=== PATIENT | female | born 1970 | race Caucasian/White ===

== ENCOUNTER 2016-11-29 08:48 | Emergency (ER) | payer BC ==
[2016-11-29] MEDS ORDERED: ASPIRIN 81 MG TABLET, CHEWABLE PO ONE (09:11)
[2016-11-29] MEDS ORDERED: ONDANSETRON 4 MG TAB.RAPDIS PO ONE (09:13)
[2016-11-29 09:40] LABS: ABSOLUTE LYMPHOCYTES (AUTO) 1.2 10^3/uL (0.5-4.7); ABSOLUTE MONOCYTES (AUTO) 0.9 10^3/uL (0.1-1.4); ABSOLUTE NEUT (AUTO) 11.3 10^3/uL (1.7-8.2); BASOPHILS % (AUTO) 0.3 % (0-2); HEMATOCRIT 37.3 % (36.0-47.0); HEMOGLOBIN 11.6 g/dL (12.0-15.5); HGB HCT DIFFERENCE -2.5; LYMPHOCYTES % (AUTO) 8.8 % (13-45); MEAN CORPUSCULAR HGB CONC 31.1 g/dL (32.0-36.0); MONOCYTES % (AUTO) 6.6 % (3-13); RED BLOOD COUNT 6.09 10^6/uL (3.72-5.28); RED CELL DISTRIBUTION WIDTH 15.1 % (11.5-14.0); SEGMENTED NEUTROPHILS % (AUTO) 84.3 % (42-78); WHITE BLOOD COUNT 13.4 10^3/uL (4.0-10.5)
[2016-11-29 09:41] LABS: MEAN CORPUSCULAR VOLUME 61 fl (80-97)
[2016-11-29 09:58] LABS: ANISOCYTOSIS SLIGHT; HYPOCHROMASIA SLIGHT; MICROCYTOSIS 3+; OVALOCYTES 1+; POIKILOCYTOSIS 1+
[2016-11-29 10:02] LABS: ALANINE AMINOTRANSFERASE 32 U/L (9-52); ALBUMIN 4.7 g/dL (3.5-5.0); ALKALINE PHOSPHATASE 53 U/L (38-126); ANION GAP 11 (5-19); ASPARTATE AMINO TRANSFERASE 17 U/L (14-36); BILIRUBIN,TOTAL 0.9 mg/dL (0.2-1.3); BLOOD UREA NITROGEN 15 mg/dL (7-20); CALCIUM 9.7 mg/dL (8.4-10.2); CARBON DIOXIDE 28 mmol/L (22-30); CHLORIDE 105 mmol/L (98-107); CREATINE KINASE 37 U/L (30-135); GLUCOSE 137 mg/dL (75-110); POTASSIUM 3.5 mmol/L (3.6-5.0); SODIUM 143.8 mmol/L (137-145); TOTAL PROTEIN 7.8 g/dL (6.3-8.2)
[2016-11-29 10:15] LABS: CREATINE KINASE MB < 0.22 ng/mL (<4.55); TROPONIN I < 0.012 ng/mL
--- NOTE | 2016-11-29 11:17 | EKG REPORT ---
SEVERITY:- NORMAL ECG - SINUS RHYTHM : Confirmed by: Analia Connors 29-Nov-2016 11:16:50
[2016-11-29] MEDS ORDERED: NORMAL SALINE 1000 ML 1,000 ML IV PRN (12:40)
[2016-11-29] MEDS ORDERED: METOCLOPRAMIDE HCL INJ/PF 10 MG/2 ML SDV IV ONE (12:41)
[2016-11-29] MEDS ORDERED: DIPHENHYDRAMINE HCL 50 MG/ML VIAL IV ONE (12:41)
[2016-11-29 14:05] LABS: APPEARANCE,URINE TURBID; BILIRUBIN,URINE NEGATIVE (NEGATIVE); CALCIUM OXALATE CRYSTALS,URINE FEW /HPF; GLUCOSE, URINE 50 mg/dL (NEGATIVE); KETONES,URINE 20 mg/dL (NEGATIVE); LEUKOCYTE ESTERASE,URINE NEGATIVE (NEGATIVE); NITRITE,URINE NEGATIVE (NEGATIVE); PROTEIN,URINE 100 mg/dL (NEGATIVE); URIC ACID CRYSTALS,URINE MANY /HPF; URINE SPECIFIC GRAVITY 1.035; UROBILINOGEN,URINE NEGATIVE mg/dL (<2.0)
[2016-11-29] MEDS ORDERED: MAG HYDROX/AL HYDROX/SIMETH SUSP 30 ML UDCUP PO ONE (16:19)
[2016-11-29] MEDS ORDERED: LIDOCAINE 2% VISCOUS SOLN 20 ML UDCUP PO ONE (16:19)
--- NOTE | 2016-11-29 17:40 | ER Document Report ---
ED General - General Chief Complaint: Chest Pain Stated Complaint: PALPITATIONS Mode of Arrival: Ambulatory Information source: Patient Notes: 46 y/o F presents to ED c/o generalized body aches and weakness, chills, n/v, and intermittent upper abd pain for the last 3 days. Reports has has decreased appetite and n/v over the last 3 days and feels dehydrated. States felt intermittent palpitations today but none at this time. Reports abdominal pain is to epigastric area and and radiates to substernal area with bouts of vomiting with associated sob. Denies chest pain or sob when not vomiting. Denies blood in emesis or stool, dysuria. States becomes anxious when she is sick because she lives by herself. States some of her co-workers have had similar symptoms over the last week. TRAVEL OUTSIDE OF THE [place] IN LAST 30 DAYS: No - HPI Onset/Duration: Intermittent, Persistent Quality of pain: Achy, Burning Severity: Mild Pain Level: 2 Associated symptoms: Body/muscle aches, Chills Similar symptoms previously: Yes Recently seen / treated by doctor: No - Related Data Allergies/Adverse Reactions: doxycycline Allergy (Verified 11/29/16 09:06) Past Medical History - General Information source: Patient - Social History Smoking Status: Never Smoker Chew tobacco use (# tins/day): No Frequency of alcohol use: None Drug Abuse: None Lives with: Family Family History: Reviewed & Not Pertinent Patient has suicidal ideation: No Patient has homicidal ideation: No - Past Medical History Cardiac Medical History: Denies: Hx Atrial Fibrillation, Hx Congestive Heart Failure, Hx Heart Attack , Hx Hypercholesterolemia, Hx Hypertension Pulmonary Medical History: Denies: Hx Asthma, Hx Bronchitis, Hx COPD, Hx Pneumonia, Hx Tuberculosis Neurological Medical History: Denies: Hx Migraine, Hx Seizures Endocrine Medical History: Denies: Hx Diabetes Mellitus Type 1, Hx Diabetes Mellitus Type 2 Renal/ Medical History: Denies: Hx End Stage Renal Disease, Hx Kidney Stones, Hx Peritoneal Dialysis GI Medical History: Denies: Hx Gastroesophageal Reflux Disease, Hx Hiatal Hernia , Hx Ulcer Musculoskeltal Medical History: Reports Hx Arthritis - Rheumatoid arthritis Skin Medical History: Reports Hx Psoriasis Psychiatric Medical History: Denies: Hx Attention Deficit Hyperactivity Disorder, Hx Bipolar Disorder, Hx Depression, Hx Schizophrenia Past Surgical History: Reports: Hx Section, Hx Cholecystectomy, Hx Hysterectomy. Denies: Hx Abdominal Surgery, Hx Appendectomy, Hx Bowel Surgery, Hx Breast Surgery, Hx Cardiac Catheterization, Hx Cardiac Surgery, Hx Genitourinary Surgery, Hx Gynecologic Surgery, Hx Kidney (Renal Surgery), Hx Mastectomy, Hx Neurologic Surgery, Hx Nose Surgery, Hx Open Heart Surgery, Hx Oral Surgery, Hx Orthopedic Surgery, Hx Pancreatic Surgery, Hx Pituitary Surgery , Hx Rectal Surgery, Hx Thyroid Surgery, Hx Tonsillectomy, Hx Tubal Ligation, Hx Urinary Tract Surgery, Hx Vascular Surgery - Immunizations Hx Diphtheria, Pertussis, Tetanus Vaccination: No - UNKNOWN IF IN LAST 5 YEARS Review of Systems - Review of Systems Constitutional: See HPI EENT: No symptoms reported Cardiovascular: See HPI Respiratory: No symptoms reported Gastrointestinal: See HPI Genitourinary: No symptoms reported Female Genitourinary: No symptoms reported Musculoskeletal: No symptoms reported Skin: No symptoms reported Hematologic/Lymphatic: No symptoms reported Neurological/Psychological: No symptoms reported -: Yes All other systems reviewed and negative Physical Exam - Vital signs Vitals: Temp Pulse Resp BP Pulse Ox 98.2 F 59 L 16 140/74 H 99 11/29/16 09:01 11/29/16 09:01 11/29/16 09:01 11/29/16 09:01 11/29/16 09:01 Interpretation: Normal - General General appearance: Alert In distress: None - HEENT Head: Normocephalic, Atraumatic Eyes: Normal Conjunctiva: Normal Eyelashes: Normal Pupils: PERRL Ears: Normal External canal: Normal Tympanic membrane: Normal Sinus: Normal Nasal: Normal Mouth/Lips: Normal Mucous membranes: Normal, Moist Pharynx: Normal. No: Blood in hypopharynx, Erythema, Exudate, Peritonsillar abscess, Post nasal drainage, Retropharyngeal abscess, Tonsillar hypertrophy, Uvular edema, Potential airway comprom., Other Neck: Normal. No: Anterior cervical chain, Posterior cervical chain, Lymphadenopathy, Meningismus, Subcutaneous emphysema - Respiratory Respiratory status: No respiratory distress Chest status: Nontender Breath sounds: Normal Chest palpation: Normal - Cardiovascular Rhythm: Regular Heart sounds: Normal auscultation Murmur: No Pulses: Normal: Radial Normal capillary refill: Yes - Abdominal Inspection: Normal Distension: No distension Bowel sounds: Normal Tenderness: Tender - Mild tenderness to palpation to mid upper abdomen/ epigastric area.. No: Nontender, McBurney's point, Carvajal's sign, Guarding, Rebound, Other Organomegaly: No organomegaly - Back Back: Normal, Nontender - Extremities General upper extremity: Normal inspection, Nontender, Normal color, Normal ROM , Normal strength, Normal temperature. No: Tender, Edema General lower extremity: Normal inspection, Nontender, Normal color, Normal ROM , Normal strength, Normal temperature, Normal weight bearing. No: Tender, Edema , Jose's sign - Neurological Neuro grossly intact: Yes Cognition: Normal Orientation: AAOx4 Jean-[place] Coma Scale Eye Opening: Spontaneous Jean-Pierre Coma Scale Verbal: Oriented [place] Coma Scale Motor: Obeys Commands [place] Coma Scale Total: 15 Speech: Normal Motor strength normal: LUE, RUE, LLE, RLE Sensory: Normal - Psychological Associated symptoms: Normal affect, Normal mood - Skin Skin Temperature: Warm Skin Moisture: Dry Skin Color: Normal Course - Re-evaluation Re-evalutation: 11/29/16 17:53 Patient hemodynamically stable, in no distress, afebrile. Slight leukocytosis otherwise unremarkable labs aside from mild dehydration. Influenza a/b negative. Patient states feels much better with nausea/vomiting and pain resolved after medication and 2 L NS bolus. Patient appears stable for discharge and agrees with home care, follow-up with PCP, and ED return precautions. Patient presentation, findings, ED care, and plan were discussed with ED physician Dr. Martinez who concurs with evaluation and treatment plan. - Vital Signs Vital signs: Temp Pulse Resp BP Pulse Ox 99.4 F 59 L 16 137/77 H 98 11/29/16 18:24 11/29/16 09:01 11/29/16 18:26 11/29/16 18:26 11/29/16 18:26 - Laboratory Result Diagrams: 11/29/16 09:30 11/29/16 09:30 Laboratory results interpreted by me: 11/29/16 11/29/16 11/29/16 09:30 09:30 13:20 WBC 13.4 H RBC 6.09 H Hgb 11.6 L MCV 61 L MCH 19.0 L MCHC 31.1 L RDW 15.1 H Seg Neutrophils % 84.3 H Lymphocytes % 8.8 L Absolute Neutrophils 11.3 H Potassium 3.5 L Glucose 137 H Urine Protein 100 H Urine Glucose (UA) 50 H Urine Ketones 20 H - Diagnostic Test Radiology reviewed: Image reviewed, Reports reviewed - EKG Interpretation by Me EKG shows normal: Sinus rhythm, [place], Intervals, QRS Complexes, ST-T Waves Rate: Normal When compared to previous EKG there are: No significant change Discharge - Discharge Clinical Impression: Nonspecific syndrome suggestive of viral illness, Epigastric pain N&V (nausea and vomiting) Qualifiers: Vomiting type: unspecified Vomiting Intractability: non-intractable Qualified Code(s): R11.2 - Nausea with vomiting, unspecified Condition: Stable Disposition: HOME, SELF-CARE Instructions: Vomiting ([facility]), Viral Syndrome ([facility]), Intravenous (IV) Fluids ( [facility]), Observation for Appendicitis ([facility]), Evaluation of Upper Abdominal Pain ( [facility]), Acetaminophen, Reglan ([facility]), Use of Diphenhydramine, Acid-Suppressing Medication ([facility]), Abdominal Pain ([facility]), Antacid Therapy ([facility]), Palpitations ( Irregular or Rapid Heartrate) ([facility]), Family Physicians / Practices Additional Instructions: Drink plenty of fluids. Follow-up with your primary care provider in 1-2 days as discussed. Return to the Emergency Department for any worsening symptoms or concerns. Prescriptions: Diphenhydramine HCl [Benadryl] 25 mg PO Q8HP PRN #15 capsule PRN Reason: Metoclopramide HCl [Reglan 10 mg Tablet] 10 mg PO Q8HP PRN #10 tablet PRN Reason: Forms: Elevated Blood Pressure, Return to Work Referrals: DEIDRA RODRIGUES MD [ACTIVE STAFF] - Follow up in 3-5 days
[2016-11-29 18:39] VITALS: BP 137/77
== END 2016-11-29 18:49 | disposition home or self-care (01) ==
LOC: ER 08:48
DX: R10.13 Epigastric pain (principal); R11.2 Nausea with vomiting, unspecified; D72.829 Elevated white blood cell count, unspecified; E86.0 Dehydration; R07.89 Other chest pain; R53.1 Weakness; R68.83 Chills (without fever); R63.0 Anorexia; R06.02 Shortness of breath; M79.1 Myalgia; Z88.1 Allergy status to other antibiotic agents; Z90.49 Acquired absence of other specified parts of digestive tract; Z90.710 Acquired absence of both cervix and uterus
CPT/HCPCS: 93005; 99285; 96361; 96374; 96375; 36415; 82553; 82550; 83690; 85025; 81025; 80053; 81001; 84484; 87804; 71010; 93010; J1200; S0119; J3490; J2765; J7030

== ENCOUNTER 2017-02-10 15:15 | Emergency (ER) | payer BC ==
[2017-02-10] MEDS ORDERED: NORMAL SALINE 1000 ML 1,000 ML IV ONE (15:53)
--- NOTE | 2017-02-10 16:01 | ER Document Report ---
ED Medical Screen (RME) - General Chief Complaint: Nausea/Vomiting Stated Complaint: NAUSEA,VOMITING,HEART PALPITATIONS Mode of Arrival: Ambulatory Information source: Patient TRAVEL OUTSIDE OF THE [place] IN LAST 30 DAYS: No - HPI Onset: Other - 3 DAYS Onset/Duration: Sudden Quality of pain: Cramping, Dull Severity: Moderate Associated Symptoms: Nausea, Vomiting, Weakness, Other - WEIGHT LOSS Exacerbated by: Food Relieved by: Denies Similar symptoms previously: Yes Recently seen / treated by doctor: No - Related Data Smoking: Non-smoker Frequency of alcohol use: Rare Drug Abuse: None Allergies/Adverse Reactions: doxycycline Allergy (Verified 02/10/17 15:45) Past Medical History - General Information source: Patient - Social History Cigarette use (# per day): No Frequency of alcohol use: Rare Drug Abuse: None - Past Medical History Cardiac Medical History: Denies: Hx Atrial Fibrillation, Hx Congestive Heart Failure, Hx Heart Attack , Hx Hypercholesterolemia, Hx Hypertension Pulmonary Medical History: Denies: Hx Asthma, Hx Bronchitis, Hx COPD, Hx Pneumonia, Hx Tuberculosis Neurological Medical History: Denies: Hx Migraine, Hx Seizures Endocrine Medical History: Denies: Hx Diabetes Mellitus Type 1, Hx Diabetes Mellitus Type 2 Renal/ Medical History: Denies: Hx End Stage Renal Disease, Hx Kidney Stones, Hx Peritoneal Dialysis GI Medical History: Denies: Hx Gastroesophageal Reflux Disease, Hx Hiatal Hernia , Hx Ulcer Musculoskeltal Medical History: Reports Hx Arthritis - Rheumatoid arthritis Skin Medical History: Reports Hx Psoriasis Psychiatric Medical History: Denies: Hx Attention Deficit Hyperactivity Disorder, Hx Bipolar Disorder, Hx Depression, Hx Schizophrenia Past Surgical History: Reports: Hx Section, Hx Cholecystectomy, Hx Hysterectomy. Denies: Hx Abdominal Surgery, Hx Appendectomy, Hx Bowel Surgery, Hx Breast Surgery, Hx Cardiac Catheterization, Hx Cardiac Surgery, Hx Genitourinary Surgery, Hx Gynecologic Surgery, Hx Kidney (Renal Surgery), Hx Mastectomy, Hx Neurologic Surgery, Hx Nose Surgery, Hx Open Heart Surgery, Hx Oral Surgery, Hx Orthopedic Surgery, Hx Pancreatic Surgery, Hx Pituitary Surgery , Hx Rectal Surgery, Hx Thyroid Surgery, Hx Tonsillectomy, Hx Tubal Ligation, Hx Urinary Tract Surgery, Hx Vascular Surgery - Immunizations Immunizations up to date: Yes Hx Diphtheria, Pertussis, Tetanus Vaccination: No - UNKNOWN IF IN LAST 5 YEARS Review of Systems - Review of Systems Constitutional: No symptoms reported EENT: No symptoms reported Cardiovascular: Palpitations Respiratory: No symptoms reported Gastrointestinal: See HPI Physical Exam - Vital signs Vitals: Temp Pulse Resp BP Pulse Ox 98.9 F 67 18 145/72 H 100 02/10/17 15:19 02/10/17 15:19 02/10/17 15:19 02/10/17 15:19 02/10/17 15:19 Interpretation: Hypertensive. No: Tachycardic, Tachypneic, Febrile - General General appearance: Appears well, Alert In distress: None - HEENT Head: Normocephalic Eyes: Normal Mouth/Lips: Normal Mucous membranes: Dry - MILDLY - Respiratory Respiratory status: No respiratory distress Course - Vital Signs Vital signs: Temp Pulse Resp BP Pulse Ox 98.9 F 67 18 145/72 H 100 02/10/17 15:19 02/10/17 15:19 02/10/17 15:19 02/10/17 15:19 02/10/17 15:19
[2017-02-10 16:40] LABS: ABSOLUTE LYMPHOCYTES (AUTO) 1.5 10^3/uL (0.5-4.7); ABSOLUTE MONOCYTES (AUTO) 0.8 10^3/uL (0.1-1.4); ABSOLUTE NEUT (AUTO) 9.1 10^3/uL (1.7-8.2); BASOPHILS % (AUTO) 0.3 % (0-2); HEMATOCRIT 39.2 % (36.0-47.0); HEMOGLOBIN 12.3 g/dL (12.0-15.5); HGB HCT DIFFERENCE -2.3; LYMPHOCYTES % (AUTO) 13.1 % (13-45); MEAN CORPUSCULAR HEMOGLOBIN 19.7 pg (27.0-33.4); MEAN CORPUSCULAR HGB CONC 31.4 g/dL (32.0-36.0); MEAN CORPUSCULAR VOLUME 63 fl (80-97); MONOCYTES % (AUTO) 6.6 % (3-13); RED BLOOD COUNT 6.26 10^6/uL (3.72-5.28); RED CELL DISTRIBUTION WIDTH 15.8 % (11.5-14.0); WHITE BLOOD COUNT 11.4 10^3/uL (4.0-10.5)
[2017-02-10 16:47] LABS: APPEARANCE,URINE CLOUDY; BILIRUBIN,URINE NEGATIVE (NEGATIVE); GLUCOSE, URINE NEGATIVE (NEGATIVE); KETONES,URINE 80 mg/dL (NEGATIVE); LEUKOCYTE ESTERASE,URINE NEGATIVE (NEGATIVE); NITRITE,URINE NEGATIVE (NEGATIVE); PROTEIN,URINE 30 mg/dL (NEGATIVE); URINE SPECIFIC GRAVITY 1.029
[2017-02-10 16:57] LABS: ALANINE AMINOTRANSFERASE 26 U/L (9-52); ALKALINE PHOSPHATASE 51 U/L (38-126); ANION GAP 17 (5-19); ASPARTATE AMINO TRANSFERASE 17 U/L (14-36); BILIRUBIN,DIRECT 0.3 mg/dL (0.0-0.4); BILIRUBIN,TOTAL 1.2 mg/dL (0.2-1.3); BLOOD UREA NITROGEN 19 mg/dL (7-20); CALCIUM 10.1 mg/dL (8.4-10.2); CARBON DIOXIDE 27 mmol/L (22-30); CHLORIDE 103 mmol/L (98-107); CREATININE RESULT 0.61 mg/dL (0.52-1.25); GLUCOSE 114 mg/dL (75-110); LIPASE 76.4 U/L (23-300); POTASSIUM 3.7 mmol/L (3.6-5.0); SODIUM 147.3 mmol/L (137-145); TOTAL PROTEIN 8.9 g/dL (6.3-8.2)
--- NOTE | 2017-02-10 17:05 | ER Document Report ---
ED General - General Chief Complaint: Nausea/Vomiting Stated Complaint: NAUSEA,VOMITING,HEART PALPITATIONS Time seen by provider: 17:04 Mode of Arrival: Ambulatory Information source: Patient Notes: This is a 46-year-old female with a history of anemia (thalassemia minor) who presents to the emergency room with nausea, vomiting, not tolerating fluids, decreased appetite, heart palpitations. The patient states that the symptoms of been for the last 5 days. She does state she's been under a lot of stress. She denies any fever, chills, diarrhea or abdominal pain. TRAVEL OUTSIDE OF THE [place] IN LAST 30 DAYS: No - HPI Onset: Yesterday Onset/Duration: Gradual Quality of pain: No pain Severity: None Pain Level: Denies Associated symptoms: Nausea, Vomiting. denies: Diarrhea, Fever, Shortness of breath Exacerbated by: Denies Relieved by: Denies Similar symptoms previously: No Recently seen / treated by doctor: No - Related Data Allergies/Adverse Reactions: doxycycline Allergy (Verified 02/10/17 15:45) Past Medical History - General Information source: Patient - Social History Smoking Status: Never Smoker Cigarette use (# per day): No Chew tobacco use (# tins/day): No Frequency of alcohol use: Rare Drug Abuse: None Lives with: Family Family History: Reviewed & Not Pertinent Patient has suicidal ideation: No Patient has homicidal ideation: No - Medical History Medical History: Negative - Past Medical History Cardiac Medical History: Denies: Hx Atrial Fibrillation, Hx Congestive Heart Failure, Hx Heart Attack , Hx Hypercholesterolemia, Hx Hypertension Pulmonary Medical History: Denies: Hx Asthma, Hx Bronchitis, Hx COPD, Hx Pneumonia, Hx Tuberculosis Neurological Medical History: Denies: Hx Migraine, Hx Seizures Endocrine Medical History: Denies: Hx Diabetes Mellitus Type 1, Hx Diabetes Mellitus Type 2 Renal/ Medical History: Denies: Hx End Stage Renal Disease, Hx Kidney Stones, Hx Peritoneal Dialysis GI Medical History: Denies: Hx Gastroesophageal Reflux Disease, Hx Hiatal Hernia , Hx Ulcer Musculoskeltal Medical History: Reports Hx Arthritis - Rheumatoid arthritis Skin Medical History: Reports Hx Psoriasis Psychiatric Medical History: Denies: Hx Attention Deficit Hyperactivity Disorder, Hx Bipolar Disorder, Hx Depression, Hx Schizophrenia Past Surgical History: Reports: Hx Section, Hx Cholecystectomy, Hx Hysterectomy. Denies: Hx Abdominal Surgery, Hx Appendectomy, Hx Bowel Surgery, Hx Breast Surgery, Hx Cardiac Catheterization, Hx Cardiac Surgery, Hx Genitourinary Surgery, Hx Gynecologic Surgery, Hx Kidney (Renal Surgery), Hx Mastectomy, Hx Neurologic Surgery, Hx Nose Surgery, Hx Open Heart Surgery, Hx Oral Surgery, Hx Orthopedic Surgery, Hx Pancreatic Surgery, Hx Pituitary Surgery , Hx Rectal Surgery, Hx Thyroid Surgery, Hx Tonsillectomy, Hx Tubal Ligation, Hx Urinary Tract Surgery, Hx Vascular Surgery - Immunizations Immunizations up to date: Yes Hx Diphtheria, Pertussis, Tetanus Vaccination: No - UNKNOWN IF IN LAST 5 YEARS Review of Systems - Review of Systems Constitutional: No symptoms reported EENT: No symptoms reported Cardiovascular: No symptoms reported Respiratory: No symptoms reported Gastrointestinal: See HPI Genitourinary: No symptoms reported Female Genitourinary: No symptoms reported Musculoskeletal: No symptoms reported Skin: No symptoms reported Hematologic/Lymphatic: No symptoms reported Neurological/Psychological: No symptoms reported Physical Exam - Vital signs Vitals: Temp Pulse Resp BP Pulse Ox 98.9 F 67 18 145/72 H 100 02/10/17 15:19 02/10/17 15:19 02/10/17 15:19 02/10/17 15:19 02/10/17 15:19 Notes: Physical exam: GENERAL: 46-year-old female, alert and oriented 3, no acute distress HEAD: Atraumatic, normocephalic. EYES: Pupils equal round and reactive to light, extraocular movements intact, sclera anicteric, conjunctiva are normal. ENT: TMs normal, nares patent, oropharynx clear without exudates. Moist mucous membranes. NECK: Normal range of motion, supple without lymphadenopathy or JVD. LUNGS: Breath sounds clear to auscultation bilaterally and equal. No wheezes rales or rhonchi. HEART: Regular rate and rhythm without murmurs, rubs or gallops. ABDOMEN: Soft, normoactive bowel sounds. No tenderness to palpation. No guarding, no rebound. No masses appreciated. EXTREMITIES: Normal range of motion, no pitting or edema. No clubbing or cyanosis. NEUROLOGICAL: Cranial nerves II through XII grossly intact. Normal speech, normal gait. PSYCH: Normal mood, normal affect. SKIN: Warm, Dry, normal turgor, no rashes or lesions noted. Course - Re-evaluation Re-evalutation: 02/10/17 21:53 Patient observed in the ER: She is feeling better after IV fluids and antiemetics. I did discuss the low TSH with her. I recommended she follow up with a repeat test in 3 months. I did refer her to a primary care doctor. The patient's T3 and T4 were normal. - Vital Signs Vital signs: Temp Pulse Resp BP Pulse Ox 97.8 F 66 16 141/71 H 100 02/10/17 22:08 02/10/17 22:08 02/10/17 22:08 02/10/17 22:08 02/10/17 22:08 - Laboratory Result Diagrams: 02/10/17 16:20 02/10/17 16:20 Laboratory results interpreted by me: 02/10/17 02/10/17 02/10/17 16:20 16:20 16:20 WBC 11.4 H RBC 6.26 H MCV 63 L MCH 19.7 L MCHC 31.4 L RDW 15.8 H Seg Neutrophils % 80.0 H Absolute Neutrophils 9.1 H Sodium 147.3 H Glucose 114 H Total Protein 8.9 H TSH Urine Protein 30 H Urine Ketones 80 H Urine Urobilinogen 2.0 H Urine Ascorbic Acid 40 H 02/10/17 16:20 WBC RBC MCV MCH MCHC RDW Seg Neutrophils % Absolute Neutrophils Sodium Glucose Total Protein TSH 0.22 L Urine Protein Urine Ketones Urine Urobilinogen Urine Ascorbic Acid - Diagnostic Test Radiology reviewed: Image reviewed, Reports reviewed - Nonobstructive pattern - EKG Interpretation by Me Rate: Normal Rhythm: NSR - EKG shows normal sinus rhythm with a ventricular rate of 60, no acute ST-T wave changes Discharge - Discharge Clinical Impression: vomiting with nausea Condition: Stable Disposition: HOME, SELF-CARE Instructions: Nausea or Vomiting, Nonspecific ([facility]) Additional Instructions: Recommendations: Rest, gradually increase fluid intake and advance diet as tolerated. Follow-up with a primary care doctor: Bring a copy of today's lab tests with you. Take Zofran for nausea as prescribed. Return to the emergency room for worsening nausea or not able to tolerate fluids or if he starts developing pain moving down to the right lower abdomen. Below is a number of to primary care doctor's: Dr. Shane Lee [address], [place] [address] [phone] Dr Haddad Address: [address] [place] [address] [place] [address] Forms: Return to Work
[2017-02-10 17:07] LABS: HYPOCHROMASIA 2+; MICROCYTOSIS 3+; OVALOCYTES 1+; POIKILOCYTOSIS 2+
[2017-02-10] MEDS ORDERED: DIPHENHYDRAMINE HCL 50 MG/ML VIAL IV ONE (17:07)
[2017-02-10] MEDS ORDERED: METOCLOPRAMIDE HCL INJ/PF 10 MG/2 ML SDV IV ONE (17:07)
[2017-02-10] MEDS ORDERED: NORMAL SALINE 1000 ML 1,000 ML IV PRN (17:07)
[2017-02-10 17:08] LABS: TARGET CELLS SLIGHT; TEAR DROP CELLS SLIGHT
[2017-02-10] MEDS ORDERED: ONDANSETRON ODT 4 MG TAB (6 TAB/DSPK) PO PRN (21:50)
[2017-02-10 22:12] VITALS: BP 141/71
--- NOTE | 2017-02-10 22:49 | EKG REPORT ---
SEVERITY:- NORMAL ECG - SINUS RHYTHM : Confirmed by: Analia Connors 10-Feb-2017 22:48:50
== END 2017-02-10 22:13 | disposition home or self-care (01) ==
LOC: ER 15:15
DX: R11.2 Nausea with vomiting, unspecified (principal); R00.2 Palpitations; Z90.49 Acquired absence of other specified parts of digestive tract; Z90.710 Acquired absence of both cervix and uterus
CPT/HCPCS: 93005; 99284; 96361; 96374; 96375; 36415; 84439; 83690; 83735; 84443; 85025; 80053; 81001; 84481; 74022; 93010; J1200; J2765; J7030

== ENCOUNTER 2017-05-05 05:55 | Emergency (ER) | payer BC ==
--- NOTE | 2017-05-05 07:35 | ER Document Report ---
ED General - General TRAVEL OUTSIDE OF THE [place] IN LAST 30 DAYS: No - HPI Onset: Other - 05/02/2017 <ANAI CALHOUN - Last Filed: 05/05/17 07:39> <MCIHAEL JEWELL - Last Filed: 05/05/17 10:30> - General Chief Complaint: Nausea/Vomiting Stated Complaint: VOMITING/NAUSEOUS Time Seen by Provider: 05/05/17 07:26 Notes: Patient is a 46 year old female who presents to the ED with complaints of nausea and vomiting night(05/02/2017). Patient states she also had some diarrhea yesterday. Patient reports epigastric abdominal pain and weakness. Patient states she has been unable to sleep or eat. Patient also complaints of her "heart pounding out of chest". Patient was seen in the ED with the same complaints of January and again in June 2016 with similar complaints. No other concerns or complaints at this time. (ANAI CALHOUN) - Related Data Allergies/Adverse Reactions: doxycycline Allergy (Verified 05/05/17 08:27) Home Medications: Current Home Medications Clobetasol Propionate [Clobetasol Propionate Solution] 1 applic TP BID 05/05/17 [History] Tacrolimus [Tacrolimus] 1 applic TOP BID 05/05/17 [History] Past Medical History - General Information source: Patient - Social History Smoking Status: Unknown if Ever Smoked Family History: Reviewed & Not Pertinent Renal/ Medical History: Denies: Hx Peritoneal Dialysis Musculoskeltal Medical History: Reports Hx Arthritis - Rheumatoid arthritis Skin Medical History: Reports Hx Psoriasis Past Surgical History: Reports: Hx Section, Hx Cholecystectomy, Hx Hysterectomy - Immunizations Immunizations up to date: Yes Hx Diphtheria, Pertussis, Tetanus Vaccination: No - UNKNOWN IF IN LAST 5 YEARS <ANAI CALHOUN - Last Filed: 05/05/17 07:39> Review of Systems - Review of Systems Constitutional: See HPI, Weakness EENT: No symptoms reported Cardiovascular: See HPI, Palpitations Respiratory: No symptoms reported Gastrointestinal: See HPI, Abdominal pain - epigastric, Diarrhea, Nausea, Vomiting Genitourinary: No symptoms reported Female Genitourinary: No symptoms reported Musculoskeletal: No symptoms reported Skin: No symptoms reported Hematologic/Lymphatic: No symptoms reported Neurological/Psychological: See HPI, Weakness <ANAI CALHOUN - Last Filed: 05/05/17 07:39> Physical Exam - General General appearance: Appears well, Alert In distress: None - HEENT Head: Normocephalic, Atraumatic Eyes: Normal Extraocular movements intact: Yes Pupils: PERRL Mucous membranes: Dry - Respiratory Respiratory status: No respiratory distress Breath sounds: Normal - Cardiovascular Rhythm: Regular Heart sounds: Normal auscultation Murmur: No - Abdominal Inspection: Normal Distension: No distension Tenderness: Nontender - Back Back: Normal - Extremities General upper extremity: Normal inspection, Normal ROM General lower extremity: Normal inspection, Normal ROM - Neurological Neuro grossly intact: Yes - Psychological Associated symptoms: Normal affect, Normal mood - Skin Skin Temperature: Warm Skin Moisture: Dry Skin Color: Normal <ANAI CALHOUN - Last Filed: 05/05/17 07:39> Course - Laboratory Result Diagrams: 05/05/17 07:54 05/05/17 07:54 <MICHAEL JEWELL - Last Filed: 05/05/17 10:30> - Vital Signs Vital signs: Temp Pulse Resp BP Pulse Ox 98.8 F 72 18 138/92 H 100 05/05/17 06:12 05/05/17 06:12 05/05/17 06:12 05/05/17 06:12 05/05/17 06:12 - Laboratory Laboratory results interpreted by me: 05/05/17 05/05/17 05/05/17 07:54 07:54 07:54 RBC 6.08 H MCV 63 L MCH 20.4 L RDW 15.9 H Glucose 122 H TSH 0.37 L Urine Protein Urine Ketones Ur Leukocyte Esterase 05/05/17 07:54 RBC MCV MCH RDW Glucose TSH Urine Protein 30 H Urine Ketones TRACE H Ur Leukocyte Esterase MODERATE H Discharge <ANAI CALHOUN - Last Filed: 05/05/17 07:39> <MICHAEL JEWELL - Last Filed: 05/05/17 10:30> - Discharge Clinical Impression: Nausea and vomiting Qualifiers: Vomiting type: unspecified Vomiting Intractability: non-intractable Qualified Code(s): R11.2 - Nausea with vomiting, unspecified Urinary tract infection Qualifiers: Urinary tract infection type: site unspecified Hematuria presence: without hematuria Qualified Code(s): N39.0 - Urinary tract infection, site not specified Condition: Stable Additional Instructions: Nausea or Vomiting, Nonspecific Vomiting (or nausea without vomiting) can be caused by many different problems. Of course, it can mean that something's wrong with the stomach, such as "stomach flu," ulcers, or inflammation. But it can also be a symptom of a problem that has nothing to do with the stomach or intestines. Vomiting is common with severe headaches, earaches, and tonsillitis. We see it with pneumonia or heart attacks. Drugs can cause nausea. Many abdominal problems cause vomiting; for example, gallstones, kidney stones, pancreatitis, and intestinal obstruction (blocked bowels). In most cases, curing the vomiting depends on fixing the problem that caused it. For temporary relief, we may use an anti-nausea medicine. For home use, we can prescribe suppositories, chewable pills, pills that dissolve in the mouth, or liquid anti-nausea drugs. If the vomiting seems to be caused by a problem in the stomach, acid-suppressing drugs may be prescribed as well. It's important to avoid dehydration. Sip clear liquids. Take increasing amounts of fluid over the first 24 hours. Then start small amounts of bland foods (such as dry toast, applesauce, mashed potato). Avoid aspirin, tobacco, and alcohol. Gradually resume your usual diet. If the vomiting worsens, if the problem that's making you vomit worsens, or if there's evidence of bleeding in the stomach (such as black, tarry stool, bloody or black vomit, or lightheadedness), you should return immediately. Call your doctor if you aren't improved in 24 to 36 hours. Urinary Tract Infection Your evaluation indicates that you have a urinary tract infection. This is due to germs growing in the bladder. This is a common problem. This infection usually responds quickly to antibiotics. Your antibiotic should be taken exactly as prescribed. Drink plenty of fluids -- three to four quarts a day. Occasionally, a bladder anesthetic will be prescribed to help stop the feeling of urgency until the antibiotic has a chance to clear the infection. This may cause your urine to be dark orange. Certain urine infections require a culture. If the doctor obtained a culture, the results will be back in two days. You should call to see if a change in treatment is needed. A repeat urinalysis after you finish treatment is often recommended. The physician will let you know if further testing is required. Call the doctor if you develop fever, chills, flank pain, inability to urinate, or blood in the urine. DRINK PLENTY OF FLUIDS. TAKE THE MEDICATION PRESCRIBED. FOLLOW UP WITH A LOCAL PRIMARY CARE DOCTOR TO MANAGE YOUR RECURRENT NAUSEA AND VOMITING. RETURN TO THE EMERGENCY ROOM IF ANY NEW OR WORSENING SYMPTOMS. Prescriptions: Cephalexin Monohydrate [Keflex 500 mg Capsule] 500 mg PO TID #15 capsule Metoclopramide HCl [Reglan 10 mg Tablet] 1 tab PO ASDIR PRN #20 tablet PRN Reason: Scribe Attestation: 05/05/17 10:29 I personally performed the services described in the documentation, reviewed and edited the documentation which was dictated to the scribe in my presence, and it accurately records my words and actions. (MICHAEL JEWELL) Scribe Documentation - Scribe Written by Torres:: torres Nagel, 05/05/2017, [id number] acting as scribe for :: Afua <ANAI CALHOUN - Last Filed: 05/05/17 07:39>
[2017-05-05] MEDS ORDERED: NORMAL SALINE 1000 ML 1,000 ML IV ONE ×2 (07:56→08:41)
[2017-05-05] MEDS ORDERED: MAG HYDROX/AL HYDROX/SIMETH SUSP 30 ML UDCUP PO ONE (07:56)
[2017-05-05] MEDS ORDERED: METOCLOPRAMIDE HCL INJ/PF 10 MG/2 ML SDV IV ONE (07:56)
[2017-05-05] MEDS ORDERED: DIPHENHYDRAMINE HCL 50 MG/ML VIAL IV ONE (07:56)
[2017-05-05] MEDS ORDERED: LIDOCAINE 2% VISCOUS SOLN 20 ML UDCUP PO ONE (07:56)
[2017-05-05 08:20] LABS: ABSOLUTE LYMPHOCYTES (AUTO) 1.6 10^3/uL (0.5-4.7); ABSOLUTE MONOCYTES (AUTO) 0.8 10^3/uL (0.1-1.4); ABSOLUTE NEUT (AUTO) 7.9 10^3/uL (1.7-8.2); BASOPHILS % (AUTO) 0.4 % (0-2); EOSINOPHILS % (AUTO) 0.1 % (0-6); HEMATOCRIT 38.2 % (36.0-47.0); HEMOGLOBIN 12.4 g/dL (12.0-15.5); LYMPHOCYTES % (AUTO) 15.3 % (13-45); MEAN CORPUSCULAR HEMOGLOBIN 20.4 pg (27.0-33.4); MEAN CORPUSCULAR HGB CONC 32.5 g/dL (32.0-36.0); MONOCYTES % (AUTO) 8.1 % (3-13); RED BLOOD COUNT 6.08 10^6/uL (3.72-5.28); RED CELL DISTRIBUTION WIDTH 15.9 % (11.5-14.0); SEGMENTED NEUTROPHILS % (AUTO) 76.1 % (42-78); WHITE BLOOD COUNT 10.3 10^3/uL (4.0-10.5)
[2017-05-05 08:28] LABS: ALANINE AMINOTRANSFERASE 23 U/L (9-52); ALBUMIN 4.8 g/dL (3.5-5.0); ALKALINE PHOSPHATASE 54 U/L (38-126); ANION GAP 13 (5-19); APPEARANCE,URINE CLOUDY; ASPARTATE AMINO TRANSFERASE 14 U/L (14-36); BILIRUBIN,DIRECT 0.2 mg/dL (0.0-0.4); BILIRUBIN,URINE NEGATIVE (NEGATIVE); BLOOD UREA NITROGEN 16 mg/dL (7-20); CALCIUM 9.8 mg/dL (8.4-10.2); CARBON DIOXIDE 27 mmol/L (22-30); CHLORIDE 104 mmol/L (98-107); CREATINE KINASE 40 U/L (30-135); CREATININE RESULT 0.67 mg/dL (0.52-1.25); GLUCOSE 122 mg/dL (75-110); GLUCOSE, URINE NEGATIVE (NEGATIVE); KETONES,URINE TRACE mg/dL (NEGATIVE); LEUKOCYTE ESTERASE,URINE MODERATE (NEGATIVE); MAGNESIUM 2.2 mg/dL (1.6-2.3); NITRITE,URINE NEGATIVE (NEGATIVE); PROTEIN,URINE 30 mg/dL (NEGATIVE); SODIUM 143.6 mmol/L (137-145); TOTAL PROTEIN 8.2 g/dL (6.3-8.2); URINE SPECIFIC GRAVITY 1.029; UROBILINOGEN,URINE NEGATIVE mg/dL (<2.0)
[2017-05-05 08:36] LABS: ANISOCYTOSIS SLIGHT; HYPOCHROMASIA 2+; POIKILOCYTOSIS 2+; TARGET CELLS SLIGHT
[2017-05-05 08:37] LABS: OVALOCYTES SLIGHT; TEAR DROP CELLS SLIGHT
[2017-05-05 08:38] LABS: MEAN CORPUSCULAR VOLUME 63 fl (80-97)
[2017-05-05] MEDS ORDERED: CEFTRIAXONE 1 GM/D5W RTU 50 ML IV ONE (09:29)
[2017-05-05 10:41] VITALS: BP 134/71
--- NOTE | 2017-05-05 13:42 | EKG REPORT ---
SEVERITY:- BORDERLINE ECG - SINUS RHYTHM VENTRICULAR PREMATURE COMPLEX BORDERLINE T ABNORMALITIES, ANTERIOR LEADS : Confirmed by: Carmen Manley MD 05-May-2017 13:41:00
== END 2017-05-05 10:35 | disposition home or self-care (01) ==
LOC: ER 05:55
DX: N39.0 Urinary tract infection, site not specified (principal); R11.2 Nausea with vomiting, unspecified; R19.7 Diarrhea, unspecified; R10.13 Epigastric pain; R53.1 Weakness; Z90.49 Acquired absence of other specified parts of digestive tract; Z90.710 Acquired absence of both cervix and uterus
CPT/HCPCS: 93005; 99284; 96361; 96375; 96365; 36415; 87086; 82550; 83735; 84443; 85025; 80053; 81001; 84484; 93010; J1200; J3490; J2765; J7030; J0696